=== PATIENT | female | born 1950 | race Hispanic/Latino ===

== ENCOUNTER 2016-06-09 19:28 | Emergency (ER) | payer SELFPAY ==
[2016-06-09] MEDS: CATAPRES PO ONE (21:06)
[2016-06-09 22:25] VITALS: BP 176/100
--- NOTE | 2016-06-10 14:16 | ED Elopement Review ---
ED Pt Elopement review - Call Back decision Pt Call Back Decision: Pt to F/U with PMD
== END 2016-06-10 01:35 | disposition left against medical advice (07) ==
LOC: ED 19:28
DX: M54.9 Dorsalgia, unspecified (principal); Z53.21 Procedure and treatment not carried out due to patient leaving prior to being seen by health care provider
CPT/HCPCS: 93005; 93010